=== PATIENT | female | born 1965 | race Caucasian/White ===

== ENCOUNTER 2017-02-15 10:05 | Emergency (ER) | payer BC ==
--- NOTE | 2017-02-15 11:32 | DIAGNOSTIC IMAGING REPORT ---
PROCEDURE: XR CHEST 2 VIEW INDICATION: CHEST PAIN TECHNIQUE: PA and lateral views. COMPARISON: None. FINDINGS: Lungs are clear. Heart and mediastinum are normal. Thorax is normal. IMPRESSION: 1. Negative chest.
--- NOTE | 2017-02-15 13:44 | ED ORDER SUMMARY ---
..... Patient: ARMOND GOINS OrderSheet [facility] VisitID: [id number] [place] [address] 51y, F Registration Date/Time: 02/15/2017 ORDER SHEET Weight: 74.8 kg Allergies: No Known Drug Allergy GENERAL ORDERS: Chest 2V Urgent (10:41 02/15/2017 Savage Arellano) (Ack 10:47 Jia) (11:00 JSanders R.N.) Pre Press Proofer (Continuous) (cp) (10:41 02/15/2017 Savage Arellano) (10:45 MELBAanders R.N.) CBC w Diff Urgent (10:42 02/15/2017 Savage Arellano) (10:45 MELBAanders R.N.) CMP Urgent (10:42 02/15/2017 Savage Arellano) (10:45 MELBAanders R.N.) UA-Culture if indicated Urgent (10:42 02/15/2017 Savage Arellano) (Ack 10:47 Jia) (11:32 JSanders R.N.) Lipase Urgent (10:42 02/15/2017 Savage Arellano) (10:45 MELBAanders R.N.) Troponin-I Urgent (10:42 02/15/2017 Savage Arellano) (10:45 MELBAanders R.N.) Urine Drug Screen Urgent (10:42 02/15/2017 Savage Arellano) (Ack 10:47 Jia) (11:32 MELBAanders R.N.) Urine Urgent (10:42 02/15/2017 Savage Arellano) (Ack 10:47 Jia) (11:32 MELBAanders R.N.) Pulse oximeter (10:42 02/15/2017 Savage Arellano) (10:45 MELBAanders R.N.) EKG - ER Stat (11:14 02/15/2017 LNations ER Tech1 per protocol) (11:14 PWeiler ER Tech1) Troponin-I (draw 2 hours after first draw) Urgent (11:34 02/15/2017 Savage Arellano) (Ack 11:44 Jia) (12:26 Tushar R.N.) MEDICATION ORDERS: GI Cocktail WHITE PO 30 mL (NOW) (10:42 02/15/2017 Savage Arellano) (11:00 Tushar R.N.) IV FLUIDS: IV Saline Lock (10:42 02/15/2017 Savage Arellano) (10:45 Tushar R.N.) ORDER SHEET NOTES: [Electronically signed by Deepthi Patel R.N. (14:03 02/15/2017)] [Electronically signed by Milan Ruiz Dr. (03:07 02/17/2017)] [Electronically locked/signed by Deepthi Patel R.N. (14:03 02/15/2017)]
--- NOTE | 2017-02-15 13:44 | ED CLINICAL REPORT ---
Clinical Report - Physicians/Mid Levels [facility] [address] [place] [address] 02/15/2017 10:07 Patient: ARMOND GOINS Time Seen: 1037. Arrived- By private vehicle. Historian- patient. HISTORY OF PRESENT ILLNESS Chief Complaint: CHEST PAIN. At its maximum, severity described as mild. When seen in the E.D., it was almost gone. Modifying factors. Not worsened by anything. Not relieved by anything. Is still present but is improving. It was abrupt in onset and has been constant but is not gone now. Onset during rest. It is described as burning and sharp and it is described as located in the central chest area. No radiation. No nausea, vomiting, difficulty breathing or diaphoresis. (reports negative stress test < 1 year ago. reports also having feeling of something "stuck in my throat." Has spoken with her doctor about GERD evaluation but has not done so yet. No recent trauma, leg swelling, surgeries, or hemoptysis). No additional chest pain. Similar symptoms previously: None. REVIEW OF SYSTEMS No fever, chills, pedal edema, calf pain or skin rash. All systems otherwise negative, except as recorded above. PAST HISTORY Denies the following risk factors for DVT/PE - history of DVT and pulmonary embolism, recent surgery, recent KS and congestive heart failure. Denies the following risk factors for DVT/PE - cancer, clotting disorder, estrogens, obesity and immobility. Denies the following risk factors for DVT/PE - advanced in age and vena cava filter. SOCIAL HISTORY Never smoker. No alcohol use or drug use. No recent travel. Is a local resident. FAMILY HISTORY History of heart disease in first-degree relative (father) (in his mid fifties). ADDITIONAL NOTES The nursing notes have been reviewed. PHYSICAL EXAM Vital Signs: 02/15/2017 10:10 BP: 141/66. HR: 73. RR: 18. O2 saturation: 100%. Temp: 98.4 F. Pain level now: 5/10. Oxygen saturation normal. Appearance: Alert. Oriented X3. No acute distress. Eyes: Pupils equal, round and reactive to light. Eyes normal inspection. ENT: Ears normal. Nose normal. Pharynx normal. Neck: Normal inspection. Neck supple. No JVD. CVS: Normal heart rate and rhythm. Heart sounds normal. Pulses normal. Respiratory: No respiratory distress. Breath sounds normal. Chest nontender. No rales, rhonchi or wheezes. Abdomen: Soft and nontender. Bowel sounds normal. No mass. (negative Salmeron's. No tenderness at McBurney's. No rebound or guarding.). Back: Normal external inspection. Skin: Skin warm and dry. Normal skin color. No rash. Normal skin turgor. Extremities: Extremities exhibit normal ROM. No lower extremity edema. LABS, X-RAYS, AND EKG EKG: No acute process. No acute ischemia. Normal EKG. Normal sinus rhythm. Rate: 61. Normal P waves. Normal SAL. Normal QRS complex. Normal axis. Normal ST and T waves, QT and QTc. The study has been interpreted contemporaneously by me. The study has been independently viewed by me. The EKG appears to be a good tracing. Chest X-ray: (PROCEDURE: XR CHEST 2 VIEW INDICATION: CHEST PAIN TECHNIQUE: PA and lateral views. COMPARISON: None. FINDINGS: Lungs are clear. Heart and mediastinum are normal. Thorax is normal. IMPRESSION: 1. Negative chest. ). Views: PA and lateral. The X-rays were independently viewed by me and interpreted by the radiologist. The X-rays were discussed with the radiologist (via pacs). Laboratory Tests: UA-Culture if indicated: (WILFRED: 02/15/2017 11:08) ( MsgRcvd 02/15/2017 11:39) Final results Test Result Flag Units (Reference) URINE COLOR YELLOW URINE APPEARANCE CLEAR URINE GLUCOSE NEGATIVE (NEGATIVE) URINE BILIRUBIN NEGATIVE (NEGATIVE) URINE KETONE NEGATIVE (NEGATIVE) URINE SPECIFIC GRAVITY <= 1.005 L (1.010-1.030) URINE PH 6.5 (5.0-8.0) URINE PROTEIN NEGATIVE (NEGATIVE) URINE UROBILINOGEN 0.2 EU/dL (0.2-1.0) URINE NITRITE NEGATIVE (NEGATIVE) URINE BLOOD TRACE-INTACT (NEGATIVE) URINE LEUK ESTERASE NEGATIVE (NEGATIVE) URINE RBC NONE SEEN rbc/hpf (0-1) URINE WBC NONE SEEN wbc/hpf (0-1) URINE EPITHELIAL CELLS 1-3 EPI/hpf (0-5) URINE BACTERIA NONE SEEN (NONE SEEN) URINE COMMENT CULT NOT INDICATED URINE CULTURES ARE SET-UP BASED ON THE FOLLOWING CRITERIA:POSITIVE NITRITEPOSITIVE LEUKOCYTE ESTERASEGREATER THAN 10 WHITE BLOOD CELLSMODERATE (2+) OR GREATER BACTERIA Urine: (WILFRED: 02/15/2017 11:08) ( [facility] [place]/15/2017 11:39) Final results Test Result Flag Units (Reference) URINE NEGATIVE CBC w Diff: (WILFRED: 02/15/2017 10:25) ( [facility] 02/15/2017 11:03) Final results Test Result Flag Units (Reference) WHITE BLOOD COUNT 5.4 K/uL (4.5-11.5) RED BLOOD COUNT 4.35 M/uL (4.00-5.20) HEMOGLOBIN 13.2 gm/dL (12.0-16.0) HEMATOCRIT 39.4 % (36.0-46.0) MEAN CELL VOLUME 91 fL (80-100) MEAN CORPUSCULAR HGB 30 pg (26-34) MEAN CORPUSCULAR HGB CONC 33 g/dL (31-37) RED CELL DISTRIBUTION WIDTH 13.5 % (11.6-14.8) PLATELET COUNT 258 K/uL (150-400) NEUTROPHIL % 60.6 % (50-75) LYMPH % 29.3 % (25-40) MONO % 6.3 % (3-14) EOSINOPHIL % 2.9 % (0-4) BASOPHIL % 0.9 % (0-2) Troponin-I: (WILFRED: 02/15/2017 12:25) ( [facility] 13:33) Final results Test Result Flag Units (Reference) TROPONIN I <0.05 ng/mL (0.00-1.5) TROPONIN REFERENCE RANGE:<0.1 NEGATIVE0.1-1.5 INDETERMINANT>1.5 POSITIVE Urine Drug Screen: (WILFRED: 02/15/2017 11:08) ( MsgRcvd 02/15/2017 11:37) Final results Test Result Flag Units (Reference) AMPHETAMINE/METHAMPHETAMINE NEGATIVE (NEGATIVE) BARBITURATE NEGATIVE (NEGATIVE) BENZODIAZEPINE NEGATIVE (NEGATIVE) CANNABINOID NEGATIVE (NEGATIVE) COCAINE NEGATIVE (NEGATIVE) ECSTASY NEGATIVE (NEGATIVE) METHADONE NEGATIVE (NEGATIVE) OPIATE NEGATIVE (NEGATIVE) The urine drug screen is a qualitative screening test fordrug overdose and abuse. All screen results should beconsidered as presumptive.Drugs screened for are as follows:BenzodiazepinesCocaineAmphetamines/MetamphetaminesTHC (Tetrahydrocannabinol)OpiatesBarbituratesEcstasyMethadonePositive results are unconfirmed. For confirmation, notifythe lab for the specimen to be sent to the reference lab.All confirmations must be performed by a differentmethodology.The ingestion of natural herbal and plant productscontaining Ephedra/Ephedra metabolites can produce in urineone or more substances capable of cross reacting withamphetamine/methamphetamine immunoassays. These testsprovide a preliminary result only. A more specificalternative chemical method must be used to obtain aconfirmed analytical result. CMP: (WILFRED: 02/15/2017 10:25) ( MsgRcvd 02/15/2017 11:07) Final results Test Result Flag Units (Reference) GLUCOSE 112 H mg/dL (70-110) BUN 20 H mg/dL (7-18) CREATININE 0.8 mg/dL (0.6-1.3) Estimated GFR >60 mL/min Estimated GFR- >60 mL/min Note: Persistent reduction over 3 months in eGFR<60 mL/min/1.73 m2 defines CKD. Patients with eGFR values>=60 mL/min/1.73 m2 may also have CKD if evidence ofpersistent proteinuria. Additional information may be foundat www.kidney.org. SODIUM 143 mmol/L (136-145) POTASSIUM 4.0 mmol/L (3.5-5.1) CHLORIDE 106 mmol/L (98-107) CARBON DIOXIDE 29 mmol/L (21-32) CALCIUM 9.5 mg/dL (8.5-10.1) TOTAL PROTEIN 7.7 g/dL (6.4-8.2) ALBUMIN 4.1 g/dL (3.3-5.0) BILIRUBIN, TOTAL 0.3 mg/dL (0.0-1.0) ALKALINE PHOSPHATASE 51 U/L (46-116) AST (SGOT) 11 L U/L (15-37) ALT (SGPT) 23 U/L (12-78) LIPASE 187 U/L (73-393) TROPONIN I <0.05 L ng/mL (0.00-1.5) TROPONIN REFERENCE RANGE:<0.1 NEGATIVE0.1-1.5 INDETERMINANT>1.5 POSITIVE . PROGRESS AND PROCEDURES Course of Care: the patient is a pleasant 51-year-old female presenting for evaluation of chest pain. Differential diagnoses at this time includes acute myocardial infarction, pulmonary embolism, or thoracic aortic dissection. Patient's pain has improved since being here in the emergency department. The latter 2 diagnoses are less favored given this resolution of her symptoms. Patient will be evaluated with chest x-ray including EKG and laboratory studies. Patient is agreeable to the treatment plan. Patient is nontoxic and in no acute distress at this time. Patient's workup is remarkable for a normal troponin. Rest of the patient's labs or studies including chest x-ray and EKG unremarkable. Because the patient's time course of her chest pain, don't the troponin will be ordered. Second troponin is currently pending. Patient updated on her laboratory studies, EKG, chest x-ray. Patient again is resting in bed and in no acute distress. Repeat examination continues to be benign. Patient second troponin has returned. No acute abnormalities noted on patient's workup. I discussion with patient in regards to her workup in the emergency department and need for outpatient follow-up. Also discussed with the patient her diagnosis, home care, follow-up, and return precautions. All questions have been answered. The patient expressed understanding of these instructions and was agreeable to them. Do not feel patient is admitted to the hospital. Do not feel patient needs further emergency department workup for evaluation. Patient is at low risk for acute myocardial infarction and is a good outpatient candidate. Disposition: Discharged. Condition: good. CLINICAL IMPRESSION Atypical chest pain (acute substernal). INSTRUCTIONS Warnings: GENERAL WARNINGS: Return or contact your physician immediately if your condition worsens or changes unexpectedly, if not improving as expected, or if other problems arise. SPECIFICALLY, return if you develop chest, neck, jaw, shoulder, arm, or back pain, difficulty breathing, a fluttering sensation in your chest, lightheadedness, fainting, excessive fatigue, or sudden sweating. Your Current Medications: CONTINUE TAKING THE FOLLOWING MEDICATIONS: None*. Prescription Medications: Pepcid 20 mg: take 1 orally every 12 hours for 10 days as needed for indigestion, upset stomach or heartburn. Dispense twenty (20). No refills. Substitution is permissible. Follow-up: Return to the emergency department as needed. Follow up with your doctor in three days. Reason for referral: recheck today's concerns. Summary of care provided to patient via paper. Screening today revealed the patient's blood pressure to be in the normal range. The patient should follow up with a primary care provider for blood pressure management. Understanding of the discharge instructions verbalized by patient. (Electronically signed by Milan Ruiz Dr. 02/17/2017 3:07)
--- NOTE | 2017-02-15 13:44 | ED NURSING NOTES ---
Clinical Report - Nurses [facility] [place] [address] 02/15/2017 10:07 [id number] Triage time 10:Feb 15 2017. Acuity: LEVEL 3. Chief Complaint: CHEST PAIN and DISCOMFORT and (5/10 chest pain epigastric area). 10:16 02/15/17. SEPSIS SCREEN: Sepsis Screen. Negative (no infection suspected/documented). WALTER COMA SCORE: [place] Coma Scale: 15- eyes open spontaneously (4); best verbal response- oriented x 4 (5); best motor response- obeys commands (6). --10:16 Deepthi Patel R.N. 10:10 02/15/17. BP: 141/66 (regular adult cuff) taken on the left arm, while sitting. HR: 73. RR: 18 (regular). O2 saturation: 100% on room air. Temp: 98.4 F (oral). Pain level now: 5/10. Additional comments: epigastric. --10:16 Deepthi Patel R.N. Weight: 74.8 kg. Height/Length: 65 inches. BMI: 27.5. --10:12 Deepthi Patel R.N. Medications None. --10:12 Deepthi Patel R.N. Allergies No Known Drug Allergy. --10:12 Deepthi Patel R.N. History Arrived by private vehicle. Historian: patient. Primary physician (YOSELIN SALAZAR). This started today. Onset. (20 minutes ago). ( EKG and treadmill done last year). No difficulty breathing, sweating episodes, nausea or vomiting. Treatment DISTANCE EDUCATION COORDINATOR: None. PAST MEDICAL HX: Negative. Immunizations: up-to-date. The patient is post-menopausal. Has had a hysterectomy. SOCIAL HX: Smoker- current status unknown. Occasional alcohol use. No drug use. No infectious disease exposure. ABUSE ASSESSMENT: No report of abuse. --10:16 Deepthi Patel R.N. PROBLEMS: no known problems. ADDITIONAL SURGERIES: Back Surgery. Hysterectomy. Laparoscopy. --10:13 Deepthi Patel R.N. Interventions ID band on patient. To treatment room. --10:16 Deepthi Patel R.N. PHYSICAL ASSESSMENT Ambulatory to room. GENERAL / NEURO / PSYCH: Alert. Oriented X 4. HEENT: Mucous membranes are pink. RESPIRATORY: Respirations not labored. Breath sounds within normal limits. CVS: Pulses within normal limits. Capillary refill less than 2 seconds. GI / : Abdomen soft and nontender. EXTREMITIES: No lower extremity edema. SKIN: Skin is warm. Normal skin turgor. Skin is non-tender. --10:18 Deepthi Patel R.N. NURSING PROGRESS NOTES The plan of care for this patient has been created. Monitoring of patient in place. Patient gowned. Head of bed elevated. Reassurance given. Two patient identifiers checked. Call light placed in reach. Side rails up. Bed placed in lowest position. Brakes of bed on. Patient ready for evaluation- chart flagged and ED physician notified. Care transferred and report given. --10:18 Deepthi Patel R.N. EKG time: (1028). EKG was ordered, performed by a tech and shown to the ED physician. --10:36 Marko Barraza ER Tech1 10:35 02/15/2017 Site #1 started via IV in the right antecubital space with an 20g angiocath, with aseptic technique and good blood return; one attempt. Blood drawn: rainbow set. Labeled in the presence of the patient and sent to the lab. Saline lock flushed with 10 mL saline. --10:45 Deepthi Patel R.N. Patient transported to radiology by stretcher with tech. (10:49 Feb 15 2017). --10:49 Deepthi Patel R.N. Patient returned from CT by stretcher with tech. (10:56 Feb 15 2017). --10:56 Deepthi Patel R.N. 11:00 02/15/2017 GI COCKTAIL WHITE (Simethicone) PO Oral Suspension 30 mL given. Allergies verified and confirmed 5 rights. --11:00 Deepthi Patel R.N. 11:00 02/15/17. BP: 135/71 (regular adult cuff) taken on the left arm, while lying. HR: 70. RR: 18 (regular). O2 saturation: 98% on room air. Pain level now: 11/22. --11:01 Deepthi Patel R.N. ( Patient up to the restroom). --11:02 Deepthi Patel R.N. ( Patient requests some ice water). --11:18 Deepthi Patel R.N. 11:18 02/15/17. BP: 152/64 (regular adult cuff) taken on the left arm, while sitting. HR: 63. RR: 18 (regular). O2 saturation: 100% on room air. Pain level now: 0. --11:18 Deepthi Patel R.N. 11:22 02/15/2017 GI COCKTAIL WHITE PO Response: pain is improving. Symptoms have improved the patient feels better. --11:37 Deepthi Patel R.N. 10:30 02/15/17. BP: 135/71 (regular adult cuff) taken on the left arm, while sitting. HR: 63. RR: 16 (regular). O2 saturation: 98% on room air. Pain level now: 0. --11:39 Deepthi Patel R.N. 11:55 02/15/17. BP: 132/65 (regular adult cuff) taken on the left arm, while sitting. HR: 60. RR: 16. O2 saturation: 100% on room air. Pain level now: 010. --11:55 Deepthi Patel R.N. ( Redraw of Troponin at 1225 performed with 23G butterfly needle, aseptic technique, patient had no complaints with draw). --12:28 Deepthi Patel R.N. 12:33 02/15/17. BP: 120/61 (regular adult cuff) taken on the left arm, while sitting. HR: 63. RR: 16. O2 saturation: 100% on room air. Pain level now: 0/10. --12:34 Deepthi Patel R.N. 13:00 02/15/17. BP: 131/68 (regular adult cuff) taken on the left arm, while sitting. HR: 65. RR: 16 (regular). O2 saturation: 100% on room air. Pain level now: 0/10. --13:33 Deetphi Patel R.N. ( Patient says pain (weird feeling in chest) went away with GI cocktail and now has came back a little.). --13:38 Deepthi Patel R.N. 13:35 02/15/17. BP: 125/67. HR: 62. RR: 16 (regular). O2 saturation: 100% on room air. Pain level now: 0/10. --13:38 Deepthi Patel R.N. DISPOSITION / DISCHARGE 13:57 02/15/2017 Site #1 removed upon discharge. Bandaid applied. --13:57 Deepthi Patel R.N. 13:58 02/15/17. Condition at departure: improved. No learning barriers present. Discharge instructions provided and reviewed with the patient. Reviewed medication(s) side effects, precautions and dosing information. Prescription(s) given to the patient. Patient verbalized understanding. Written instructions provided in Romanian. The patient was discharged by the physician. She was discharged to work. She left the Emergency Department ambulatory and via private vehicle. Patient driving. ( Patient discharged in good condition with no further questions). --13:58 Deepthi Patel R.N. 13:52 02/15/17. BP: 124/67 (regular adult cuff) taken on the left arm, while sitting. HR: 60. RR: 16 (regular). O2 saturation: 100% on room air. Temp: 98.3 F (oral). Pain level now: 0/10. --13:58 Deepthi Patel R.N. Departure time: 14:Feb 15 2017. --14:02 Deepthi Patel R.N. Locked/Released at 02/15/2017 14:03 by Deepthi Patel R.N.
--- NOTE | 2017-02-15 13:44 | ED ORDER SUMMARY ---
..... Patient: ARMOND GOINS OrderSheet [facility] VisitID: [id number] [place] [address] 51y, F Registration Date/Time: 02/15/2017 ORDER SHEET Weight: 74.8 kg Allergies: No Known Drug Allergy GENERAL ORDERS: Chest 2V Urgent (10:41 02/15/2017 Savage Arellano) (Ack 10:47 Jia) (11:00 JSanders R.N.) Shells Inspector (Continuous) (cp) (10:41 02/15/2017 Savage Arellano) (10:45 MELBAanders R.N.) CBC w Diff Urgent (10:42 02/15/2017 Savage Arellano) (10:45 MELBAanders R.N.) CMP Urgent (10:42 02/15/2017 Savage Arellano) (10:45 MELBAanders R.N.) UA-Culture if indicated Urgent (10:42 02/15/2017 Savage Arellano) (Ack 10:47 Jia) (11:32 JSanders R.N.) Lipase Urgent (10:42 02/15/2017 Savage Arellano) (10:45 MELBAanders R.N.) Troponin-I Urgent (10:42 02/15/2017 Savage Arellano) (10:45 MELBAanders R.N.) Urine Drug Screen Urgent (10:42 02/15/2017 Savage Arellano) (Ack 10:47 Jia) (11:32 MELBAanders R.N.) Urine Urgent (10:42 02/15/2017 Savage Arellano) (Ack 10:47 Jia) (11:32 MELBAanders R.N.) Pulse oximeter (10:42 02/15/2017 Savage Arellano) (10:45 MELBAanders R.N.) EKG - ER Stat (11:14 02/15/2017 LNations ER Tech1 per protocol) (11:14 PWeiler ER Tech1) Troponin-I (draw 2 hours after first draw) Urgent (11:34 02/15/2017 Savage Arellano) (Ack 11:44 Jia) (12:26 Tushar R.N.) MEDICATION ORDERS: GI Cocktail WHITE PO 30 mL (NOW) (10:42 02/15/2017 Savage Arellano) (11:00 Tushar R.N.) IV FLUIDS: IV Saline Lock (10:42 02/15/2017 Savage Arellano) (10:45 Tushar R.N.) ORDER SHEET NOTES: [Electronically signed by Deepthi Patel R.N. (14:03 02/15/2017)] [Electronically signed by Milan Ruiz Dr. (03:07 02/17/2017)] [Electronically locked/signed by Deepthi Ptael R.N. (14:03 02/15/2017)]
--- NOTE | 2017-02-17 03:07 | ED MED RECONCILIATION SUMMARY ---
Patient: ARMOND GOINS Medication Reconciliation Report [facility] VisitID: [id number] [place] [address] 51y, F Registration Date/Time: 02/15/2017 Weight: 74.8 kg Height/Length: 65 in. BMI: 27.5 ALLERGIES: No Known Drug Allergy The patient's Home Medications are listed below: NONE. The source(s) of the original Home Medication information: Not obtained. The following Medications were given to the patient in the Emergency Department: GI COCKTAIL WHITE [PO] PO 30 mL, administered: 02/15/2017 11:00:00 AM The following Medications were prescribed to the patient: Pepcid 20 mg: take 1 orally every 12 hours for 10 days as needed for indigestion, upset stomach or heartburn. Dispense twenty (20). No refills. Substitution is permissible. -- Milan Ruiz Dr.
--- NOTE | 2017-02-17 03:07 | ED DISCHARGE INSTRUCTIONS ---
Patient: ARMOND GOINS General Instructions [facility] VisitID: [id number] [place] [address] 51y, F Registration Date/Time: 02/15/2017 Atypical chest pain (acute substernal). INSTRUCTIONS Warnings: GENERAL WARNINGS: Return or contact your physician immediately if your condition worsens or changes unexpectedly, if not improving as expected, or if other problems arise. SPECIFICALLY, return if you develop chest, neck, jaw, shoulder, arm, or back pain, difficulty breathing, a fluttering sensation in your chest, lightheadedness, fainting, excessive fatigue, or sudden sweating. Your Current Medications: CONTINUE TAKING THE FOLLOWING MEDICATIONS: None*. Prescription Medications: Pepcid 20 mg: take 1 orally every 12 hours for 10 days as needed for indigestion, upset stomach or heartburn. Dispense twenty (20). No refills. Substitution is permissible. Follow-up: Return to the emergency department as needed. Follow up with your doctor in three days. Reason for referral: recheck today's concerns. Summary of care provided to patient via paper. Screening today revealed the patient's blood pressure to be in the normal range. The patient should follow up with a primary care provider for blood pressure management. Understanding of the discharge instructions verbalized by patient. ADDITIONAL INFORMATION Chest Pain, Uncertain Cause Chest pain can happen for a number of reasons. Sometimes the cause can not be determined. If yourcondition does not seem serious, and your pain does not appear to be coming from your heart, your doctor may recommend watching it closely. Sometimes the signs of a serious problem take more time to appear. Therefore, watch for the warning signs listed below. Home care After your visit, follow these recommendations: Rest today and avoid strenuous activity. Take any prescribed medicine as directed. Follow-up care Follow up with your doctor or this facility as instructed or if you do not start to feel better within 24 hours. Call 911 Get immediate medical attention if any of the following occur: A change in the type of pain: if it feels different, becomes more severe, lasts longer, or begins to spread into your shoulder, arm, neck, jaw or back Shortness of breath or increased pain with breathing Weakness, dizziness, or fainting Rapid heart beat Get prompt medical attention Call your doctor right away if any of the following occur: Cough with dark colored sputum (phlegm) or blood Fever of 100.4F(38C) or higher, or as directed by your health care provider Swelling, pain or redness in one leg Famotidine Oral tablet What is this medicine? FAMOTIDINE (fa SPENCER beckham lisa) is a type of antihistamine that blocks the release of stomach acid. It is used to treat stomach or intestinal ulcers. It can also relieve heartburn from acid reflux. How should I use this medicine? Take this medicine by mouth with a glass of water. Follow the directions on the prescription label. If you only take this medicine once a day, take it at bedtime. Take your doses at regular intervals. Do not take your medicine more often than directed. Talk to your foreclosure specialist regarding the use of this medicine in children. Special care may be needed. What side effects may I notice from receiving this medicine? Side effects that you should report to your doctor or health pet caretaker as soon as possible: agitation, nervousness confusion hallucinations skin rash, itching Side effects that usually do not require medical attention (report to your doctor or health pet caretaker if they continue or are bothersome): constipation diarrhea dizziness headache What may interact with this medicine? delavirdine itraconazole ketoconazole What if I miss a dose? If you miss a dose, take it as soon as you can. If it is almost time for your next dose, take only that dose. Do not take double or extra doses. Where should I keep my medicine? Keep out of the reach of children. Store at room temperature between 15 and 30 degrees C (59 and 86 degrees F). Do not freeze. Throw away any unused medicine after the expiration date. What should I tell my health care provider before I take this medicine? They need to know if you have any of these conditions: kidney or liver disease trouble swallowing an unusual or allergic reaction to famotidine, other medicines, foods, dyes, or preservatives or trying to get breast-feeding What should I watch for while using this medicine? Tell your doctor or health pet caretaker if your condition does not start to get better or if it gets worse. Finish the full course of tablets prescribed, even if you feel better. Do not take with aspirin, ibuprofen or other antiinflammatory medicines. These can make your condition worse. Do not smoke cigarettes or drink alcohol. These cause irritation in your stomach and can increase the time it will take for ulcers to heal. If you get black, tarry stools or vomit up what looks like coffee grounds, call your doctor or health pet caretaker at once. You may have a bleeding ulcer. You have been given the following additional information: Chest Pain, Uncertain Cause Famotidine Oral tablet (Electronically signed by Milan Ruiz Dr. 02/17/2017 3:07)
--- NOTE | 2017-02-17 03:07 | ED MAR SUMMARY ---
..... Medication Administration Record [facility] [address] [place] [address] Patient: ARMOND GOINS Visit ID: [id number] 51y, F Weight: 74.8 kg Height/Length: 65 in BMI: 27.5 ALLERGIES: No Known Drug Allergy Given 11:00 02/15/2017 Deepthi Patel R.N. Medication Administered: GI COCKTAIL WHITE [PO] (SIMETHICONE), Dose: 30 mL Oral Suspension PO. Medication Ordered: GI Cocktail WHITE PO 30 mL (NOW).
--- NOTE | 2017-02-17 03:07 | ED MAR SUMMARY ---
..... Medication Administration Record [facility] [address] [place] [address] Patient: ARMOND GOINS Visit ID: [id number] 51y, F Weight: 74.8 kg Height/Length: 65 in BMI: 27.5 ALLERGIES: No Known Drug Allergy Given 11:00 02/15/2017 Deepthi Patel R.N. Medication Administered: GI COCKTAIL WHITE [PO] (SIMETHICONE), Dose: 30 mL Oral Suspension PO. Medication Ordered: GI Cocktail WHITE PO 30 mL (NOW).
--- NOTE | 2017-02-17 03:07 | ED MED RECONCILIATION SUMMARY ---
Patient: ARMOND GOINS Medication Reconciliation Report [facility] VisitID: [id number] [place] [address] 51y, F Registration Date/Time: 02/15/2017 Weight: 74.8 kg Height/Length: 65 in. BMI: 27.5 ALLERGIES: No Known Drug Allergy The patient's Home Medications are listed below: NONE. The source(s) of the original Home Medication information: Not obtained. The following Medications were given to the patient in the Emergency Department: GI COCKTAIL WHITE [PO] PO 30 mL, administered: 02/15/2017 11:00:00 AM The following Medications were prescribed to the patient: Pepcid 20 mg: take 1 orally every 12 hours for 10 days as needed for indigestion, upset stomach or heartburn. Dispense twenty (20). No refills. Substitution is permissible. -- Milan Ruiz Dr.
--- NOTE | 2017-02-17 03:07 | ED DISCHARGE INSTRUCTIONS ---
Patient: ARMOND GOINS General Instructions [facility] VisitID: [id number] [place] [address] 51y, F Registration Date/Time: 02/15/2017 Atypical chest pain (acute substernal). INSTRUCTIONS Warnings: GENERAL WARNINGS: Return or contact your physician immediately if your condition worsens or changes unexpectedly, if not improving as expected, or if other problems arise. SPECIFICALLY, return if you develop chest, neck, jaw, shoulder, arm, or back pain, difficulty breathing, a fluttering sensation in your chest, lightheadedness, fainting, excessive fatigue, or sudden sweating. Your Current Medications: CONTINUE TAKING THE FOLLOWING MEDICATIONS: None*. Prescription Medications: Pepcid 20 mg: take 1 orally every 12 hours for 10 days as needed for indigestion, upset stomach or heartburn. Dispense twenty (20). No refills. Substitution is permissible. Follow-up: Return to the emergency department as needed. Follow up with your doctor in three days. Reason for referral: recheck today's concerns. Summary of care provided to patient via paper. Screening today revealed the patient's blood pressure to be in the normal range. The patient should follow up with a primary care provider for blood pressure management. Understanding of the discharge instructions verbalized by patient. ADDITIONAL INFORMATION Chest Pain, Uncertain Cause Chest pain can happen for a number of reasons. Sometimes the cause can not be determined. If yourcondition does not seem serious, and your pain does not appear to be coming from your heart, your doctor may recommend watching it closely. Sometimes the signs of a serious problem take more time to appear. Therefore, watch for the warning signs listed below. Home care After your visit, follow these recommendations: Rest today and avoid strenuous activity. Take any prescribed medicine as directed. Follow-up care Follow up with your doctor or this facility as instructed or if you do not start to feel better within 24 hours. Call 911 Get immediate medical attention if any of the following occur: A change in the type of pain: if it feels different, becomes more severe, lasts longer, or begins to spread into your shoulder, arm, neck, jaw or back Shortness of breath or increased pain with breathing Weakness, dizziness, or fainting Rapid heart beat Get prompt medical attention Call your doctor right away if any of the following occur: Cough with dark colored sputum (phlegm) or blood Fever of 100.4F(38C) or higher, or as directed by your health care provider Swelling, pain or redness in one leg Famotidine Oral tablet What is this medicine? FAMOTIDINE (fa SPENCER beckham lisa) is a type of antihistamine that blocks the release of stomach acid. It is used to treat stomach or intestinal ulcers. It can also relieve heartburn from acid reflux. How should I use this medicine? Take this medicine by mouth with a glass of water. Follow the directions on the prescription label. If you only take this medicine once a day, take it at bedtime. Take your doses at regular intervals. Do not take your medicine more often than directed. Talk to your radio sportscaster regarding the use of this medicine in children. Special care may be needed. What side effects may I notice from receiving this medicine? Side effects that you should report to your doctor or health acute care assistant as soon as possible: agitation, nervousness confusion hallucinations skin rash, itching Side effects that usually do not require medical attention (report to your doctor or health acute care assistant if they continue or are bothersome): constipation diarrhea dizziness headache What may interact with this medicine? delavirdine itraconazole ketoconazole What if I miss a dose? If you miss a dose, take it as soon as you can. If it is almost time for your next dose, take only that dose. Do not take double or extra doses. Where should I keep my medicine? Keep out of the reach of children. Store at room temperature between 15 and 30 degrees C (59 and 86 degrees F). Do not freeze. Throw away any unused medicine after the expiration date. What should I tell my health care provider before I take this medicine? They need to know if you have any of these conditions: kidney or liver disease trouble swallowing an unusual or allergic reaction to famotidine, other medicines, foods, dyes, or preservatives or trying to get breast-feeding What should I watch for while using this medicine? Tell your doctor or health acute care assistant if your condition does not start to get better or if it gets worse. Finish the full course of tablets prescribed, even if you feel better. Do not take with aspirin, ibuprofen or other antiinflammatory medicines. These can make your condition worse. Do not smoke cigarettes or drink alcohol. These cause irritation in your stomach and can increase the time it will take for ulcers to heal. If you get black, tarry stools or vomit up what looks like coffee grounds, call your doctor or health acute care assistant at once. You may have a bleeding ulcer. You have been given the following additional information: Chest Pain, Uncertain Cause Famotidine Oral tablet (Electronically signed by Milan Ruiz Dr. 02/17/2017 3:07)
== END 2017-02-15 14:02 | disposition home or self-care (01) ==
LOC: ED SRH 10:05
DX: R07.89 Other chest pain (principal)
CPT/HCPCS: 90004; 90100; 90616; 92235; 92760; 92761; 92762; 92763; 92764; 92765; 92766; 92767; 93070; 95059